=== PATIENT | male | born 1945 | race Caucasian/White ===

== ENCOUNTER → 2020-08-05 20:42 | Outpatient (ROUT) | payer MEDICARE, SELFPAY ==
[2020-08-05 21:11] LABS: BUN Creatinine Ratio 19.8 (6-22); Blood Urea Nitrogen 18 mg/dL (9-20); Calcium 9.6 mg/dL (8.4-10.2); Carbon Dioxide 27 mmol/L (22-32); Chloride 108 mmol/L (98-107); Estimated Glomerular Filt Rate > 60.0 mL/min (>60); Glucose 108 mg/dL (80-110); HEMOLYSIS < 15 (0-50); Potassium 4.5 mmol/L (3.4-5.1); Sodium 140 mmol/L (137-145)
== END ==
PROVIDERS: Visit Provider Internal Medicine
DX: I10 Essential (primary) hypertension (principal)
CPT/HCPCS: 80048

== ENCOUNTER → 2021-02-24 19:20 | Outpatient (ROUT) | payer OTHER, SELFPAY ==
[2021-02-24 19:48] LABS: HEMOLYSIS < 15 (0-50)
[2021-02-24 19:55] LABS: Aspartate Aminotransferase 32 IU/L (17-59); Blood Urea Nitrogen 18 mg/dL (9-20); Calcium 9.4 mg/dL (8.4-10.2); Carbon Dioxide 23 mmol/L (22-32); Chloride 109 mmol/L (98-107); Cholesterol 169 mg/dL (140-199); Estimated Glomerular Filt Rate > 60.0 mL/min (>60); Glucose 108 mg/dL (80-110); HDL Cholesterol 71 mg/dL (40-60); LDL Cholesterol Calculated 77 mg/dL (<100); Potassium 4.2 mmol/L (3.4-5.1); Sodium 140 mmol/L (137-145); Triglycerides 105 mg/dL (35-150)
[2021-02-24 20:39] LABS: Prostate Specific Antigen 2.51 ng/mL (0.10-4.00)
== END ==
PROVIDERS: Visit Provider Internal Medicine
DX: I10 Essential (primary) hypertension (principal); E78.2 Mixed hyperlipidemia; N40.0 Benign prostatic hyperplasia without lower urinary tract symptoms
CPT/HCPCS: 80048; 80061; 84153; 84450

== ENCOUNTER → 2021-05-05 13:26 | Outpatient (CLI) | payer OTHER, SELFPAY ==
[2021-05-05 15:36] LABS: COVID19 -Nasal RAPID Negative (Negative)
== END ==
PROVIDERS: Visit Provider Physician Assistant
DX: Z01.812 Encounter for preprocedural laboratory examination (principal); Z20.822 Contact with and (suspected) exposure to COVID-19
CPT/HCPCS: 87635

== ENCOUNTER 2021-05-07 10:15 | Day surgery (SDC) | payer OTHER, SELFPAY ==
[2021-05-07] VITALS (8 sets, daily range): BP systolic 143–171; BP diastolic 80–94; PULSE 66–87; RESP 12–20; TEMP 36.6–37.3; O2SAT 96–100; BMI 29.5
--- NOTE | 2021-05-07 | PATH_ITS ---
[facility] Accession Number: [id number] . 01 Material submitted: . colon - TRANSVERSE COLON POLYPS X2 . 02 Diagnosis: Transverse Colon, Polyps x2, Biopsies: Tubular adenomas. MRV 05/09/2021 1017 Local . 02 Electronically signed: . Yamel Lees MD, Pathologist NPI- [id number] . 01 Gross description: . TRANSVERSE COLON POLYPS X2: Received in formalin are 2 fragment(s) of guerra, soft tissue measuring 0.5 x 0.4 x 0.3 cm to 0.4 x 0.3 x 0.2 cm submitted entirely in 1 cassette(s) /MAURO 05/08/2021 0638 Local . 02 Pathologist provided ICD-10: D12.3 . 02 CPT . 564988 Performed at: 01 [facility] [address] [id number] MD Javier Guillermo MD Phone: [phone] Performed at: 02 [facility] [id number] [place] [id number] MD Yamel Lees MD Phone: [phone]
[2021-05-07] MEDS: SODIUM CHLORIDE 0.9% 1,000 ML 84 ML IV (11:04)
--- NOTE | 2021-05-07 12:11 | PM.HP.1 ---
History of Present Illness History of Present Illness Date Patient Seen: 05/07/21 Chief complaint: COLONOSCOPY W/POSS BX Narrative: History of colon polyps Patient History Medical History (Updated 05/07/21 @ 10:51 by Maria Guadalupe Griffith RN) Glaucoma Hearing difficulty of both ears Hyperlipemia Hypertension Family & Social History Social History: household members spouse Tobacco & Substance use: Smoking Status Never smoker alcohol intake current alcohol intake frequency 0-2 drinks per day Substance Use Type does not use Meds Home Medications and Allergies Home Medications Medication Instructions Recorded Confirmed Type losartan 100 mg tablet 100 mg PO DAILY 05/07/21 05/07/21 History simvastatin 40 mg tablet 40 mg PO BEDTIME 05/07/21 05/07/21 History timolol 0.5 % eye drops 1 drp OPHTHALMIC (EYE) BID 05/07/21 05/07/21 History Allergies Allergy/AdvReac Type Severity Reaction Status Date / Time No Known Drug Allergies Allergy Verified 05/07/21 10:47 Exam Vital Signs (past 8 hours): - 05/07/21 10:59 Temperature 98.5 F Pulse Rate 87 Respiratory Rate 20 Blood Pressure 171/94 H Pulse Oximetry 100 Oxygen Delivery Method Room Air Narrative Exam Narrative: Oropharynx free of lesions Chest clear to auscultation percussion Cardiac exam reveals no S3 or murmur Assessment & Plan Assessment & Plan narrative: History of colon polyps need for follow-up colonoscopy. Risks, benefits, alternatives have been explained.
--- NOTE | 2021-05-07 12:12 | PM.OP.ENDO ---
Operative Date/Time/Diagnoses Date of procedure: 05/07/21 Pre-op diagnosis: See indication and findings Procedure & Clinicians Study performed: Colonoscopy Indications: Family history of colon cancer in his mother and personal history of colon polyps Surgeon: Stanislav Barbosa Procedure Notes Procedure in detail: After informed consent was obtained the patient was placed in left lateral decubitus position. The video colonoscope was introduced the rectum slowly advanced cecum. Preparation was good. On slow withdrawal mucosa was carefully examined. The scope was removed. The patient tolerated procedure well. Blood loss none Complications none Sedation Total sedation time 19 minutes Versed 7 mg fentanyl 100 micro g IV titration Findings 1. Extensive sigmoid diverticulosis with some narrowing of the lumen 2. 8 mm sessile polyp in the transverse colon cold snared and removed completely 3. 4 mm polyp nearby in the transverse colon Jumbo biopsy removed completely. The specimen was placed in the same bottle as 2. Above. 4. Otherwise negative colonoscopy to cecum Patient should have follow-up colonoscopy in 5 years. We will be in touch regarding the pathology.
[2021-05-07] MEDS: MIDAZOLAM 5 MG/5 ML VIAL IV (12:24)
[2021-05-07] MEDS: fentaNYL 250 MCG/5 ML INJ IV (12:25)
--- NOTE | 2021-05-07 13:05 | SUR.PHASEII ---
Report given to CHERRY Benitez in pacu phase 2 pt stable A&O, VSS, sitting up drinking juice without problems
== END 2021-05-07 13:39 | disposition home or self-care (01) ==
PROVIDERS: Family Provider Family Medicine; PCP Internal Medicine; Referring Provider Internal Medicine Gastroenterology; Visit Provider Internal Medicine Gastroenterology
PROC: 0DJD8ZZ Inspection of Lower Intestinal Tract, Via Natural or Artificial Opening Endoscopic (ICD-10-PCS; CPT 45378; principal; 2021-05-07 11:30)
DX: Z12.11 Encounter for screening for malignant neoplasm of colon (principal); Z86.010 Personal history of colon polyps; Z80.0 Family history of malignant neoplasm of digestive organs; I10 Essential (primary) hypertension; E78.5 Hyperlipidemia, unspecified; K57.30 Diverticulosis of large intestine without perforation or abscess without bleeding; D12.3 Benign neoplasm of transverse colon
CPT/HCPCS: 45385; 45380; J2250; J3010

== ENCOUNTER → 2022-08-17 11:59 | Outpatient (CLI) | payer MEDICARE, SELFPAY ==
[2022-08-17 13:03] LABS: Hematocrit 40.7 % (41-53); Hemoglobin 13.8 g/dL (13.5-17.5); Mean Corpuscular HGB Conc 33.9 % (30-36); Mean Corpuscular Hemoglobin 30.3 PG (26-34); Mean Corpuscular Volume 89.3 fL (80-100); Platelet Count 195 X10^3/uL (150-400); Red Blood Cell Count 4.56 X10^6/uL (4.5-5.9); Red Cell Distribution Width 13.6 % (11.6-14.8); White Blood Cell Count 6.7 X10^3/uL (4.5-11.0)
[2022-08-17 13:46] LABS: Alanine Aminotransferase 35 IU/L (<50); Albumin Globulin Ratio 1.4 (1.0-2.8); Alkaline Phosphatase 65 U/L (38-126); Aspartate Aminotransferase 30 IU/L (17-59); BUN Creatinine Ratio 19.8 (6-22); Bilirubin Total 0.6 mg/dL (0.2-1.3); Blood Urea Nitrogen 18 mg/dL (9-20); Calcium 8.5 mg/dL (8.4-10.2); Carbon Dioxide 25 mmol/L (22-32); Chloride 105 mmol/L (98-107); Cholesterol 200 mg/dL (140-199); Estimated Glomerular Filt Rate > 60 mL/min (>60); Globulin 2.8 g/dL (1.7-4.1); Glucose 107 mg/dL (80-110); HDL Cholesterol 62 mg/dL (40-60); HEMOLYSIS < 15 (0-50); LDL Cholesterol Calculated 117 mg/dL (<100); Potassium 5.3 mmol/L (3.4-5.1); Sodium 137 mmol/L (137-145); Total Protein 6.8 g/dL (6.3-8.2); Triglycerides 107 mg/dL (35-150)
[2022-08-17 14:14] LABS: Prostate Specific Antigen 2.78 ng/mL (0.10-4.00)
[2022-08-17 14:22] LABS: TSH w/ Reflex to FT4 2.93 uIU/mL (0.47-4.68)
== END ==
PROVIDERS: Family Provider Family Medicine; PCP Internal Medicine; Referring Provider Internal Medicine; Visit Provider Internal Medicine
DX: E78.2 Mixed hyperlipidemia (principal); N40.0 Benign prostatic hyperplasia without lower urinary tract symptoms; I10 Essential (primary) hypertension
CPT/HCPCS: 36415; 80053; 80061; 84153; 84443; 85027

== ENCOUNTER → 2023-08-16 11:02 | Outpatient (CLI) | payer MEDICARE, SELFPAY ==
[2023-08-16 11:56] LABS: Aspartate Aminotransferase 27 IU/L (17-59); Blood Urea Nitrogen 15 mg/dL (9-20); Calcium 9.3 mg/dL (8.4-10.2); Carbon Dioxide 25 mmol/L (22-32); Chloride 107 mmol/L (98-107); Cholesterol 183 mg/dL (140-199); Estimated Glomerular Filt Rate > 60 mL/min (>60); Glucose 119 mg/dL (80-110); HDL Cholesterol 66 mg/dL (40-60); HEMOLYSIS < 15 (0-50); LDL Cholesterol Calculated 87 mg/dL (<100); Potassium 4.3 mmol/L (3.4-5.1); Sodium 139 mmol/L (137-145); Triglycerides 148 mg/dL (35-150)
[2023-08-16 12:24] LABS: Prostate Specific Antigen 2.97 ng/mL (0.10-4.00)
== END ==
PROVIDERS: Family Provider Family Medicine; PCP Internal Medicine; Referring Provider Internal Medicine; Visit Provider Internal Medicine
DX: E78.2 Mixed hyperlipidemia (principal); N40.0 Benign prostatic hyperplasia without lower urinary tract symptoms; I10 Essential (primary) hypertension
CPT/HCPCS: 36415; 80048; 80061; 84153; 84450

== ENCOUNTER → 2024-08-17 12:01 | Outpatient (CLI) | payer MEDICARE, SELFPAY ==
[2024-08-17 13:33] LABS: Aspartate Aminotransferase 37 IU/L (17-59); BUN Creatinine Ratio 16.5 (6-22); Blood Urea Nitrogen 14 mg/dL (9-20); Calcium 9.1 mg/dL (8.4-10.2); Carbon Dioxide 25 mmol/L (22-32); Chloride 106 mmol/L (98-107); Cholesterol 193 mg/dL (140-199); Estimated Glomerular Filt Rate > 60 mL/min (>60); Glucose 106 mg/dL (80-110); HDL Cholesterol 74 mg/dL (40-60); HEMOLYSIS < 15 (0-50); LDL Cholesterol Calculated 100 mg/dL (<100); Potassium 4.8 mmol/L (3.4-5.1); Sodium 138 mmol/L (137-145); Triglycerides 95 mg/dL (35-150)
[2024-08-17 13:37] LABS: Hemoglobin A1C% w Est Avg Glu 5.8 % (4.0-6.0)
[2024-08-17 14:03] LABS: Prostate Specific Antigen 3.18 ng/mL (0.10-4.00)
== END ==
PROVIDERS: Family Provider Family Medicine; PCP Internal Medicine; Referring Provider Internal Medicine; Visit Provider Internal Medicine
DX: R73.01 Impaired fasting glucose (principal); E78.2 Mixed hyperlipidemia; N40.1 Benign prostatic hyperplasia with lower urinary tract symptoms; I10 Essential (primary) hypertension; N13.8 Other obstructive and reflux uropathy; N52.9 Male erectile dysfunction, unspecified; H90.3 Sensorineural hearing loss, bilateral; Z86.0100 Personal history of colon polyps, unspecified; E66.9 Obesity, unspecified; Z68.30 Body mass index [BMI] 30.0-30.9, adult
CPT/HCPCS: 36415; 80048; 80061; 83036; 84153; 84450

== ENCOUNTER → 2025-02-06 11:24 | Outpatient (CLI) | payer MEDICARE, SELFPAY | PROVIDERS: Family Provider Family Medicine; PCP Internal Medicine; Visit Provider Physician Assistant | DX: L08.9 Local infection of the skin and subcutaneous tissue, unspecified (principal) | CPT/HCPCS: 87070; 87186; 87205 ==

== ENCOUNTER → 2025-08-22 10:49 | Outpatient (CLI) | payer MEDICARE, SELFPAY ==
[2025-08-22 11:09] LABS: Hematocrit 44.3 % (41-53); Hemoglobin 14.9 g/dL (13.5-17.5); Mean Corpuscular HGB Conc 33.6 % (30-36); Mean Corpuscular Hemoglobin 29.7 PG (26-34); Mean Corpuscular Volume 88.2 fL (80-100); Platelet Count 214 X10^3/uL (150-400)
[2025-08-22 11:16] LABS: Hemoglobin A1C% w Est Avg Glu 5.3 % (4.0-6.0)
[2025-08-22 11:24] LABS: Blood Urea Nitrogen 13 mg/dL (9-20); Calcium 8.8 mg/dL (8.4-10.2); Carbon Dioxide 24 mmol/L (22-32); Chloride 104 mmol/L (98-107); Cholesterol 158 mg/dL (140-199); Estimated Glomerular Filt Rate > 60 mL/min (>60); Glucose 102 mg/dL (70-99); HDL Cholesterol 65 mg/dL (40-60); HEMOLYSIS < 15 (0-50); Potassium 4.6 mmol/L (3.4-5.1); Sodium 138 mmol/L (137-145); Triglycerides 114 mg/dL (35-150)
[2025-08-22 11:51] LABS: TSH w/ Reflex to FT4 3.56 uIU/mL (0.47-4.68)
== END ==
PROVIDERS: PCP Internal Medicine; Referring Provider Internal Medicine; Visit Provider Internal Medicine
DX: R53.83 Other fatigue (principal); R73.01 Impaired fasting glucose; I10 Essential (primary) hypertension; E78.2 Mixed hyperlipidemia
CPT/HCPCS: 36415; 80048; 80061; 83036; 84443; 84450; 85027